=== PATIENT | female | born 1960 | race American Indian/Alaskan Native ===

== ENCOUNTER 2018-03-24 18:41 | Emergency (ER) | payer OTHER, BC ==
[2018-03-24 18:51] VITALS: BP 156/83; PULSE 61; RESP 16; TEMP 97.3; O2SAT 99
--- NOTE | 2018-03-24 20:11 | C.PDOC ---
History Of Present Illness 58 y/o female presents to the ED for evaluation of left foot injury sustained today. Patient states a container ran over her left foot while at work. She now complains of left foot pain and swelling. Denies any numbness or tingling. Time Seen by Provider: 03/24/18 19:07 Chief Complaint (Nursing): Lower Extremity Problem/Injury History Per: Patient History/Exam Limitations: no limitations Onset/Duration Of Symptoms: Hrs Current Symptoms Are (Timing): Still Present Past Medical History Reviewed: Historical Data, Nursing Documentation, Vital Signs Vital Signs: Last Vital Signs Temp 97.3 F L 03/24/18 18:46 Pulse 61 03/24/18 18:46 Resp 16 03/24/18 18:46 BP 156/83 H 03/24/18 18:46 Pulse Ox 99 03/24/18 18:46 - Medical History PMH: Gall Bladder Disease Denies: Chronic Kidney Disease Surgical History: Cholecystectomy Family History: States: No Known Family Hx - Social History Hx Alcohol Use: No Hx Substance Use: No Review Of Systems Musculoskeletal: Positive for: Foot Pain, Other (Foot Swelling) Skin: Negative for: Lesions, Bruising Neurological: Negative for: Weakness, Numbness, Incoordination Physical Exam - Physical Exam Appears: Non-toxic, No Acute Distress Skin: Warm, Dry, No Ecchymosis Head: Atraumatic, Normacephalic Eye(s): bilateral: Normal Inspection Respiratory: No Accessory Muscle Use, Other (speaking in full sentences) Extremity: Tenderness (diffusely to the left foot, no ankle tenderness), No Deformity, Swelling (throughout the left foot), Other (Able to bear limited weight on the left foot) Pulses: Left Dorsalis Pedis: Normal, Right Dorsalis Pedis: Normal Neurological/Psych: Oriented x3, Normal Motor, Normal Sensation ED Course And Treatment O2 Sat by Pulse Oximetry: 99 (RA) Pulse Ox Interpretation: Normal - Other Rad X-Ray Left Foot X-Ray: Interpreted by Me, Viewed By Me Interpretation: (+) non-displaced, non-comminuted fracture to the mid 5th metatarsal Medical Decision Making Medical Decision Making: Impression: Left foot trauma Initial Plan: --Left foot x-ray --Declined pain medication Imaging results discussed with patient. Surgical shoe and crutches provided. Advised to follow up with orthopedist, patient states she follows with Dr. Kike perez and has an appointment with him on Friday. Disposition Counseled Patient/Family Regarding: Studies Performed, Diagnosis, Need For Followup - Disposition Referrals: Ashley Armstrong MD [Staff Provider] - Disposition: HOME/ ROUTINE Disposition Time: 21:16 Condition: STABLE Additional Instructions: ALEXEI KAUR, thank you for letting us take care of you today. Your provider was Felicita Santos MD and you were treated for ANKLE INJURY. The emergency medical care you received today was directed at your acute symptoms. If you were prescribed any medication, please fill it and take as directed. It m ay take several days for your symptoms to resolve. Return to the Emergency Department if your symptoms worsen, do not improve, or if you have any other problems. Please contact your doctor or call one of the physicians/clinics you have been referred to that are listed on the Patient Visit Information form that is included in your discharge packet. Bring any paperwork you were given at discharge with you along with any medications you are taking to your follow up visit. Our treatment cannot replace ongoing medical care by a primary care provider outside of the emergency department. Thank you for allowing the [facility] team to be part of your care today. If you had an X-Ray or CT scan: A Radiologist will review the ED reading if any change in treatment is needed we will contact you. If you had a blood, urine, or wound culture: It will take several days for the results, if any change in treatment is needed we will contact you. If you had an STI test: It will take 48 hours for the results. Please call after 1 week if you have not heard back. Instructions: Foot Fracture (DC) Forms: [employer]* ([place]) - POA Present On Arrival: Falls Or Trauma - Clinical Impression Clinical Impression: Closed nondisplaced fracture of fifth left metatarsal bone - Scribe Statement The provider has reviewed the documentation as recorded by the Senia Contreras Provider Attestation: All medical record entries made by the Wyattibwiley were at my direction and personally dictated by me. I have reviewed the chart and agree that the record accurately reflects my personal performance of the history, physical exam, medical decision making, and the department course for this patient. I have also personally directed, reviewed, and agree with the discharge instructions and disposition.
--- NOTE | 2018-03-25 12:31 | RAD ---
PROCEDURE: Left Foot Radiographs. HISTORY: r/o fx COMPARISON: None available. FINDINGS: BONES: Oblique fracture of the 5th metatarsal. Remainder the visualized osseous structures appear intact. JOINTS: No dislocation. SOFT TISSUES: Soft tissue swelling. No evidence of radiopaque foreign body. OTHER FINDINGS: None. IMPRESSION: Acute oblique fracture of the mid 5th metatarsal with associated soft tissue swelling. Study has been marked for PA review.
== END 2018-03-24 21:28 | disposition home or self-care (01) ==
LOC: C.ER 18:41
DX: S92.355A Nondisplaced fracture of fifth metatarsal bone, left foot, initial encounter for closed fracture (principal); W22.8XXA Striking against or struck by other objects, initial encounter; Y99.0 Civilian activity done for income or pay

== ENCOUNTER 2018-05-22 09:25 | Day surgery (SDC) | payer BC, OTHER ==
[2018-05-22] MEDS ORDERED: EPINEPHrine 1:1000 Nasal Sol(30mL) ONE (13:28)
[2018-05-22] MEDS ORDERED: ceFAZolin 1 gm in NS 2 GM/200 ML BAG IVPB ONE (13:54)
[2018-05-22] MEDS ORDERED: Propofol 10 mg/ml Inj (20 ML) ONE (14:01)
[2018-05-22] MEDS ORDERED: Midazolam 2 MG/2 ML VIAL ONE (14:01)
[2018-05-22] MEDS ORDERED: Succinylcholine Chloride 20 mg/ml Syr (5 ml) IV ONE (14:08)
[2018-05-22] MEDS ORDERED: Rocuronium 10 mg/ml (5 ml) ONE (14:39)
[2018-05-22] MEDS ORDERED: Neostigmine 1:1000 (1 mg/ml) Inj ONE (16:41)
[2018-05-22] MEDS: HYDROmorphone 0.5 mg/0.5 ml ISec IVP PRN ×2 (17:12→18:46)
[2018-05-22] MEDS ORDERED: Lactated Ringer's 1,000 ML IV SCH (17:15)
[2018-05-22] MEDS ORDERED: Bupivacaine HCl 0.5% PF (10 ml) Inj ONE (17:21)
--- NOTE | 2018-05-22 17:51 | PCM.ANESB7 ---
Adductor Canal Block - Adductor Canal Block Date of Procedure: 05/22/18 Anesthiologist: Marii Pre-Procedure Diagnosis: left s/p meniscus repair Post-Procedure Diagnosis: same Procedure Performed: Adductor Canal Block Left - Procedure Adductor Canal Block: The procedure was explained to the patient that it is for the post-operative pain management. Consent was obtained after a thorough discussion with the patient regarding the benefits and possible complications of local anesthetic adductor canal block of the femoral nerve. Standard monitors, as defined by the ASA, were applied to the patient. Time-out was held with the circulating nurse to confirm the appropriate block. After applying supplemental oxygen and administering IV Sedation as needed, the patient was placed in supine position with and the operative leg was flexed slightly at the knee and externally rotated as needed, and was kept anatomically stable. The mid-thigh of the left lower extremity was exposed. The ultrasound transducer was then applied transversely along the medial aspect, about midway down the thigh and the femoral artery and vein were identified in appropriate relation with the sartorius muscle. At this time, the femoral nerve was visualized lateral to the femoral artery within the canal. After thorough identification, this area area was prepped with Chloroprep solution three times and 1 % Lidocaine was injected subcutaneously for topical anesthesia. At this point, a #22 gauge Stimuplex 4-inch needle was inserted in-plane in a [id number] orientation, and advanced toward the femoral nerve. Advancement was performed carefully under direct ultrasound visualization. Nerve stimulator was used and appropriate muscle twitch was obtained at current of MA. After negative aspiration, __5___cc of _0.5____% bupivacaine was injected and this was followed with ____15__ cc of ____0.5___ % ___bupivacaine . Under ultrasound guidance the local anesthetics were observed spreading around the femoral nerve. The needle was removed intact and sterile dressing was applied. The patient had stable vital signs, was conscious and in no apparent distress. The patient tolerated the femoral nerve block well with stable vital signs and was prepared for subsequent surgery
[2018-05-22] MEDS ORDERED: Lactated Ringer's 500 ML IV ONE (18:00)
[2018-05-22 18:30] VITALS: TEMP 97.9
[2018-05-22 19:47] VITALS: BP 126/67; PULSE 66; RESP 14; O2SAT 95
--- NOTE | 2018-05-23 04:33 | PCM.SURG1 ---
Surgeon's Initial Post Op Note - Surgeon's Notes Surgeon: Ashley Huertas MD Lead Radiation Therapist: Sole Mora PA-C Type of Anesthesia: General Endo, Block [facility] Pre-Operative Diagnosis: Left knee: #1 medial meniscal tear. #2 lateral meniscal tear. #3 partial ACL tear (unstable). #4 large poplitear/Dixon's cyst. #5 chondral injury/ chondromalacia. #6 synovitis Operative Findings: Left knee: #1 medial meniscal tear (complex tear from mid- body to posterior horn, white-red zone, not repairable). #2 lateral meniscal tear (2 zones of injury= white-white zone complex free edge tear, not repairable/ red-red zone peripheral tear at posterior horn, repairable). #3 partial ACL tear (complete tear karo-medial bundle, grade 3 rotational instability, grade 2 anterior draw/Declan, repairable). #4 large poplitear/B sheyla's cyst. #5 chondral injury/ chondromalacia = focal areas of full thickness grade 4 chondral loss at MFC (Traumatic/acute, measuring 3mm width, 15mm AP, at posterior WB zone), lateral plateau (Traumatic/acute, measuring 4mm width, 10mm AP), trochlea (degenerative, measuring [id number], central), patella (degenerative, entire medial facet). #6 synovitis all 3 compartments. #7 hypertrophic, inflamed fat pad (causing anterior impingement). #8 symptomatic medial and lateral plica bands Post-Operative Diagnosis: Left knee: #1 medial meniscal tear (complex tear from mid-body to posterior horn, white-red zone, not repairable). #2 lateral meniscal tear (2 zones of injury= white-white zone complex free edge tear, not repairable/ red-red zone peripheral tear at posterior horn, repairable). #3 partial ACL tear (complete tear karo-medial bundle, grade 3 rotational instability, grade 2 anterior draw/Declan, repairable). #4 large poplitear/Dixon's cyst. #5 chondral injury/ chondromalacia = focal areas of full thickness grade 4 chondral loss at MFC (Traumatic/acute, measuring 3mm width, 15mm AP, at posterior WB zone), lateral plateau (Traumatic/acute, measu ring 4mm width, 10mm AP), trochlea (degenerative, measuring [id number], central), patella (degenerative, entire medial facet). #6 synovitis all 3 compartments. #7 hypertrophic, inflamed fat pad (causing anterior impingement). #8 symptomatic medial and lateral plica bands Operation Performed: Left knee arthroscopic: #1 primary ACL repair. #2 all inside lateral meniscal repair. #3 partial medial menisectomy. #4 extensive synovectomy (synovectomy all 3 compartments, resection plica, debridement fat pad). #5 chondroplasty and microfracture chondral defects MFC, lateral plateau, trochlea. #6 intra-articular PRP injection. #7 ultrasound guided aspiration Dixon's cyst Specimen/Specimens Removed: specimen= none. complications=none. tourniquet time= 0min. Implants= Arthrex fiberwire suture and 5.5 biocomposite swivel Lock anchor x1 for ACL repair. Linvatex: Sequent meniscal repair system, 4 implants for LMR (1 kit opened) Estimated Blood Loss: EBL {In ML}: 3 Blood Products Given: N/A Drains Used: No Drains Post-Op Condition: Good Date of Surgery/Procedure: 05/22/18 Time of Surgery/Procedure: 16:00
--- NOTE | 2018-06-10 14:22 | OP ---
PROCEDURE DATE: 05/22/2018 PREOPERATIVE DIAGNOSES: Left knee: 1. Medial meniscal tear. 2. Lateral meniscal tear. 3. Partial anterior cruciate ligament tear (grade 2 instability). 4. Large popliteal Dixon cyst. 5. Chondral injury/chondromalacia. 6. Synovitis. 7. hypertrophic, inflamed, anterior infrapatellar fat pad POSTOPERATIVE DIAGNOSES: Left knee: 1. Medial meniscal tear (complex tear from midbody to posterior horn, white-red zone, not repairable). 2. Lateral meniscal tear (2 zones of injury = white-white zone complex free edge tear, not repairable/red-red zone preferable tear at posterior horn, repairable). 3. Partial anterior cruciate ligament tear (complete tear anterior medial bundle, grade 3 rotational instability, grade 2 anterior drawer/Declan, repairable with good quality, anterior cruciate ligament tissue present). 4. Large popliteal cyst/Dixon cyst. 5. Chondral injury/chondromalacia = focal areas of full-thickness grade 4 chondral loss at medial femoral condyle (traumatic/acute measuring 3 mm in width x 15 mm anterior to posterior at the posterior aspect of the medial femoral condyle), lateral plateau (traumatic/acute), measuring 4 mm of width x 10 mm anterior to posterior, trochlea (degenerative, measuring 15 mm x 15 mm central), patella (degenerative, medial facet). 6. Synovitis, all 3 compartments. 7. Hypertrophic, inflamed fat pad causing anterior impingement and patellofemoral impingement. 8. Symptomatic medial and lateral plica bands. PROCEDURES: Left knee arthroscopic. 1. Primary anterior cruciate ligament repair (AM bundle). 2. All-inside lateral meniscus repair. 3. Partial medial meniscectomy. 4. Extensive synovectomy, all three compartments. 5. Debridement and resection, symptomatic medial and lateral plica bands. 6. Debridement and resection, hypertrophic/inflamed fat pad. 7. Chondroplasty and microfracture chondral defects, medial femoral condyle, lateral plateau, trochlea. 8. Intraarticular platelet-rich plasma injection. 9. Ultrasound-guided aspiration, Dixon cyst. SURGEON: Ashley Huertas MD RECOVERER: Sole Mora PA-C JUSTIFICATION FOR RECOVERER: Sole Mora is a certified physician promotions assistant sales marketing whose skilled surgical services were an absolute necessity for successful completion of the procedure as he provided skilled surgical assistance with positioning of the patient, positioning of extremity, management of surgical box, retraction of neurovascular structures, facilitating all inside lateral meniscus repair, facilitating primary ACL repair with passage of suture through ACL and suture management as well as primary ACL repair fixation/placement of anchor and suture tensioning, handling of arthroscopic equipment, facilitating chondroplasty and microfracture of multiple acute chondral defects, extensive synovectomy, including resection of plica and debridement of fat pad, wound closure, fitting and placement of postop hinged knee brace. Sole Mora was present for the entire case and his presence was an absolute necessity for successful completion of this complex procedure requiring a skilled surgical coder. ANESTHESIA: General endotracheal anesthesia with a postop regional nerve block placed by anesthesia staff in PACU. SPECIMENS: None. COMPLICATIONS: None. TOURNIQUET TIME: Zero minutes. ESTIMATED BLOOD LOSS: 3 mL. DRAINS: None. DISPOSITION: The patient was extubated and transferred to the PACU in stable condition and tolerated the procedure well. IMPLANTS: 1. [employer] FiberWire suture and 5.5 mm BioComposite SwiveLock knotless anchor x1 for ACL repair AM bundle. 2. [employer] all-inside meniscal repair system, 4 implants used for lateral meniscus repair (1 kit opened). INDICATIONS FOR SURGERY: The patient is a 58-year-old female with no significant past medical history who presented to the office for the first time under my care with left knee pain, swelling, instability since 10/2017 with her initial presentation in my office on 01/12/2018. Despite the specific timeline of progressively worsening pain and instability around 10/2017, she could not recall a specific traumatic event, but states that she has had multiple twisting mechanism type injuries to the left knee around 10/2017 that resulted in her progressively worsening left knee pain. She saw her primary care physician who referred her for an orthopedic evaluation. She works as a truck dock material mover at [employer] and at this point in time, the pain has become a significant negative impact on her quality of life and is interfering with her ability to perform her work function and responsibilities. Left knee pain consistently rated 8/10 and localized to the medial and lateral joint line as well as the posterior knee. She admitted to clicking and catching and multiple episodes of locking and giving away and nearly falling to the ground. Subjectively, she reported significant instability. She also reported pain at the anterior aspect of the knee localized to the infrapatellar fat pad with forced full extension. this most likely represents Hypertrophic, inflamed anterior fat pad causing anterior impingement at knee joint on extension as well as patellofemoral impingement with extension. X-rays taken in the office on initial presentation on 01/12/2018 showed joint spaces that were well maintained with normal alignment and no obvious evidence of DJD and no fracture or dislocation. She underwent MRI of the left knee done at [facility] on 01/23/2018, which was read as: 1. Complex tear, posterior horn and body of medial meniscus. 2. Grade 2 sprain/partial tear ACL and MCL. 3. Moderate tricompartmental articular chondrosis, most pronounced medially. 4. Large Dixon cyst. On my review of the MRI, there was definite signal change in the medial meniscus with significant complex meniscal tear, ACL showed significant signal change, with complete tear of the anterior medial bundle detached from the femoral insertion at the lateral femoral condyle. On the MRI, there appeared to be good quality ACL tissue that potentially is amenable to primary repair if indicated. Chondral surface throughout the knee was mostly intact with a focal zone of full-thickness cartilage loss at the medial femoral condyle measuring 10 mm x 10 mm. There was also a large 7 cm Dixon cyst at the posterior knee embedded within the medial gastroc head. After initial presentation on 01/12/2018, we started conservative treatment for her left knee pain, which included placement of an [id number] ACL brace, intraarticular cortisone mixture injection, referral to physical therapy, home exercise program, antiinflammatory medications in the form of Mobic, antiinflammatory compound cream. She was very compliant with all conservative treatments recommendations, despite even if it was causing her more pain, she still did not miss any physical therapy visits. She underwent a cortisone mixture intraarticular injection under my care in the office on 01/12/2018 and 04/23/2018. On both occasions, with the intraarticular injections, she reported near complete resolution of pain and religious of painless range of motion and function. With the use of the [id number] ACL brace, which she was compliant with, she stated that she felt that her knee was stable, but once she tried to perform any activity without the brace on, she felt like her knee was giving out and reported significant subjective instability. After approximately 4 months of conservative treatment and at that point 8 months since onset of symptoms with presumed trauma in 10/2017, she had no overall improvement and was very frustrated with her life of progress. She was concerned as she was having difficulty maintaining her work function and activity level. She was also distraught that she was not able to return to her recreational activities and walking and running as well as gym activities and classes. We discussed further treatment options including more injections and physical therapy versus surgical intervention, she was indicated for surgery in the form of left knee arthroscopic medial and lateral meniscal repairs versus partial meniscectomy, possible primary ACL repair, chondroplasty/microfracture/joint preservation treatment for cartilage injury, synovectomy, or related indicated arthroscopic procedures. The risks, benefits and alternatives to the procedure were discussed at length with the patient with the risks including but not limited to infection, neurovascular damage, need for further surgery, failure of repair, failure of the implants, inability to return to preinjury level of activity and occupation, development of blood clots including DVT ad PE, development of chronic pain and disability, anesthesia reactions including . After answering all of her questions, she stated that she understood the risks and wished to proceed with surgery. She watched surgical animation videos and diagnosis animation videos and stated that she had a good understanding of the procedure as well as her multiple diagnoses. She was referred to her primary care physician for preoperative medial evaluation and the procedure was scheduled at [facility] on 05/22/2018. PROCEDURE IN DETAIL: The patient was identified in the preoperative holding area, and the left knee was marked for surgery. Once again as described above, the risks, benefits, and alternatives of the procedure were discussed at length with the patient and informed consent was obtained. After a brief discussion with anesthesia staff, the patient was taken to the operating room and placed on a well-padded operating room table with all bony prominences and superficial neurovascular structures well padded. Initial time-out was done with the surgeon, anesthesia staff, operating room staff all in agreement with the patient, procedure being done and extremity being operated on. General anesthesia was administered without difficulty or complications. Examination under anesthesia was then carried out. EXAMINATION UNDER ANESTHESIA: Left knee with no swelling, no warmth, no erythema. Skin intact. large posterior Dixon cyst palpated deep to medial gastroc. Full range of motion compared to contralateral knee, significant ACL instability with 3+ anterior cone baker machine external rotation, neutral, internal rotation with soft endpoint, 2+ Declan with firm endpoints, 2+ pivot shift, negative posterior drawer, negative reverse Declan, negative reverse pivot shift, negative opening to medial or lateral joint line at 0 or 30 degrees varus or valgus stress. Patella with normal tracking with no evidence of instability, no crepitance. There was reproducible palpable click at the inferior medial aspect of the patella engaging the patella at 30 degrees of flexion throughout flexion arc representing a symptomatic medial plica band. Negative posterolateral corner drawer, negative dial test, negative recurvatum. Overall, there was significant rotational instability of this partial ACL tear. CONTINUATION OF PROCEDURE: The tourniquet was placed high on the right thigh, but never inflated. left lower extremity was prepped and draped in a standard sterile fashion. A final time-out was done with the surgeon, anesthesia staff, OR staff, all in agreement with the patient, procedure being done, and extremity being operated on. Perioperative IV antibiotics were administered. A 50 mL of normal saline was used to insufflate the knee joint. Anterolateral portal was created with stab incision through the skin down to subcutaneous tissue down to the level of the capsule. Blunt arthroscopic trocar and cannula were inserted into the suprapatellar pouch, and insufflation with arthroscopic fluid was begun. Arthroscopic camera was inserted, and with the use of spinal needle localization, anterior medial portal location was identified and created with stab incision to skin down to subcutaneous tissue down to the level of capsule. An accessory cannula was inserted through the anteromedial portal, and the knee joint was copiously irrigated for removal of synovial debris and better visualization. With the use of an arthroscopic probe, a diagnostic arthroscopy was then carried out. DIAGNOSTIC ARTHROSCOPY: Attention was first turned towards the suprapatellar pouch where there was no evidence of adhesions or loose body, patellar-femoral joint exhibited significant chondral injury. Trochlea exhibited degenerative central area of full-thickness chondral loss down to subchondral bone measuring 15 mm x 15 mm, patella exhibited full thickness chondral loss, degenerative nature encompassing the entire medial facet. The remainder of the chondral surface of the trochlea and patella was intact. the patella was well centered within the trochlea with no evidence of instability or subluxation on dynamic testing. Attention was then turned towards the medial gutter where there was no evidence of loose bodies, but there was obvious thickened hypertrophic inflamed symptomatic medial plica band causing friction with the medial femoral condyle chondral surface extending from the inferior medial aspect of the patella to the medial retinaculum. Attention was then turned towards the medial compartment where intact medial tibial plateau cartilage/chondral surface was seen. Medial femoral condyle had global grade 1 chondromalacia with a focal area of grade 4 chondromalacia /chondral loss Focal in nature measuring 3 mm in width and 15 mm anterior to posterior located at the posterior aspect of the weightbearing zone medial femoral condyle. The medial meniscus upon careful evaluation exhibited a large area of complex injury. There was a complex tear localized to the white-red zone starting at the mid body extending to the entire posterior horn medial meniscus with poor quality meniscal tissue not amenable to repair. Attention was then turned towards the intercondylar notch, and the PCL was evaluated and found to be intact. ACL was carefully evaluated in detail, and there were significant tears in line with the fibers with ACL, buckling seen and attenuation. After careful evaluation and tracing of both bundles proximally individually, to the lateral femoral condyle insertions, it was obvious that this was a complete avulsion anterior-medial bundle while the posterior- lateral bundle showed only partial tear proximally at the lateral femoral condyle apache insertion/footprint. the majority of the posterior-lateral bundle proximal insertion at the lateral femoral condyle was intact. The anterior medial bundle avulsion fibers/apache remnant fibers were of good quality ACL tissue, Scarred down to the posterior capsule and PCL. The posterior lateral bundle fibers also appeared to be of good quality and appeared to be maintaining its stabilizing function with overall intact and tight fibers throughout. This explains the grade 3 instability in the anterior translation plane while grade 1-2 instability with a firm endpoint on Declan and pivot shift testing. Attention was then turned towards the lateral compartment, careful evaluation with the arthroscopic probe at the lateral meniscus yielded 3 zones of injury: #1 complex free edge white-white zone tearing extending from the posterior horn to the mid body, by definition not amenable to repair. #2 posterior horn exhibited significant peripheral red-red zone tear beginning anterior to the popliteal hiatus extending anterior to the posterior horn-mid body junction with good-quality meniscal tissue amenable to repair present. This tear pattern resulted in significant hypermobility /instability of the posterior horn of the lateral meniscus with ability to sublux the posterior horn anteriorly beyond the midpoint of the lateral femoral condyle almost touching the anterior horn lateral meniscus. #3 posterior horn also had a secondary tear in the form of a large undersurface flap tear beginning at the midpoint of the posterior horn and continuing posterior to the junction of the posterior horn-posterior root, not repairable. The posterior root was intact and stable. The lateral femoral condyle exhibited intact cartilage with no visible degenerative or traumatic chondral injury. Lateral tibial plateau chondral surface exhibited acute/traumatic zone of full-thickness chondral injury measuring 4 mm in width by 10 mm anterior to posterior with exposed subchondral bone. Aside from the zones of full-thickness chondral injury localized to the medial femoral condyle, lateral tibial plate medial facet patella, the rest of the chondral surface of the knee was intact with no evidence of degenerative or chondral injury. There was also a hypertrophic, thickened symptomatic lateral plica band causing friction with lateral femoral condyle lateral aspect. Throughout all three compartments of the knee, there was significant hypertrophic inflamed synovitis. At the anterior aspect of the knee, there was hypertrophic and inflamed anterior fat pad causing significant anterior and patellofemoral impingement. CONTINUATION OF PROCEDURE: ARTHROSCOPIC ALL INSIDE LATERAL MENISCAL REPAIR: With the use of arthroscopic shaver, radiofrequency ablation, arthroscopic meniscal biters, a partial lateral meniscectomy was carried out debriding complex tears that were not repairable at the white-white zone, free edge of the mid body extending to the posterior horn as well as the secondary tear at the posterior horn in the form of an undersurface complex large flap tear not amenable to repair despite being partially localized to the white-red and red-red zones. Once this was carried out to satisfaction and a smooth contour was established as well as complete resection of the undersurface flap tear, we then turned our attention to the meniscus repair. All in all approximately 15% of the lateral meniscus was resected during the partial lateral meniscectomy. We first turned our attention to the posterior horn peripheral red-red zone tear/meniscocapsular separation localized anterior to the popliteal hiatus resulting in significant hypermobility of the posterior horn. There was good quality meniscal tissue at that was amenable to all inside lateral meniscus repair. The [employer] meniscal repair system was used with placement of 4 implants in total. 4 implants were placed at the superior aspect of the posterior horn anterior to the popliteal hiatus with good capsular sided fixation achieved resulting in 3 vertical mattress sutures stabilizing and repairing the peripheral red-red zone tear of the posterior horn. The arthroscopic probe was used to evaluate the repair and indeed good stability and repair was achieved of this peripheral red-red zone injury/meniscal capsular separation, successful all inside lateral meniscus repair posterior horn was achieved. the posterior horn peripheral tear successful arthroscopic repair resulted in significant improvement in the instability/hypermobility of the posterior horn lateral meniscus. After the repair was completed, we were unable to sublux the posterior horn anteriorly beyond the level of the midpoint of the lateral femoral condyle as well as possible and displayed prior to the posterior horn peripheral tear repair. ARTHROSCOPIC PARTIAL MEDIAL MENISECTOMY: With the use of arthroscopic shaver, radiofrequency ablation, arthroscopic meniscal biters, a partial medial meniscectomy was carried out. The nature of the medial meniscal complex tearing presented with poor quality meniscal tissue localized to the white-white and white-red zone mid body to posterior horn. There was a complex free edge tear localized to the white-white zone beginning at the mid body and extending posterior to the posterior horn. There was also a large complex flap tear localized to the white-red zone beginning at the midpoint of the posterior horn extending to the posterior horn-posterior root junction. The partial medial meniscectomy involved resection of both zones of injury described above. Once a smooth contour to the free edge tear was established removing the unstable meniscal fragments and complex tearing and large flap tear was resected establishing a smooth contour to the posterior horn, posterior horn-posterior junction as well as the posterior root itself were carefully evaluated. The posterior root was stable with 90% intact fibers. All in all once the partial medial meniscectomy was completed, approximately 20-25% of the medial meniscus was resected overall. We used a very conservative approach performing the partial medial meniscectomy leaving behind as much intact medial meniscal tissue as possible adherent to the principles of joint preservation. ARTHROSCOPIC PRIMARY ACL REPAIR (AM BUNDLE ONLY): With the use of arthroscopic shaver and radiofrequency ablation, the poor quality torn, degenerative anterior-medial and posterior-lateral bundle fibers were resected and debrided in a very conservative manner leaving as much apache ACL fibers as possible to incorporate into the primary ACL repair. Overlying ligamentum and synovium over the lateral femoral condyle and insertion of the anterior medial and posterior lateral bundles at the lateral femoral condyle was debrided and marked. The anteromedial and posterolateral bundle fibers were identified and visually. The posterior wall of the lateral femoral condyle was also visualized and noted to avoid posterior breakout, the posterior border of our working area for placement of ACL repair anchor was established. Only the anterior medial bundle of the ACL partial tear was indicated for primary repair. With the use of the meniscal scorpion suture passer from [employer], we began with passage of suture through the anterior medial bundle. A #2 FiberWire suture was passed starting at the distal aspect of the anterior medial bundle at the tibial insertion and working our way proximally to the femoral side of the anterior medial bundle. Approximately 4 to 5 passes with the #2 FiberWire sutures zigzagging through the anterior medial bundle work carried out. To reinforce the construct 1 #2 FiberWire cinch suture was also passed mid substance with a good bite of the anterior medial bundle. An accessory incision was made superior just inferior to the inferior pole of the patella as a small 1 cm stab incision to pass the sutures from the posterior lateral bundle and maintain good suture management. The anterior medial portal had been expanded and a PassPort cannula had been placed to also facilitate good suture management and avoid soft tissue bridge. Optimal insertion points at the lateral femoral condyle with at the apache femoral insertion footprint for anterior medial bundle was identified. A 5.5 BioComposite SwiveLock knotless anchor from [employer] was selected for the anterior medial single bundle ACL primary repair. With the use of the punch, the police pilot hole at the insertion site at the apache anterior medial bundle insertion at the lateral femoral condyle was prepared, and the FiberWire suture from the anterior medial bundle repair were passed through the SwiveLock anchor and the anchor was carefully and successfully placed with good bony fixation achieved at the lateral femoral condyle, reducing and repairing the anterior medial bundle back to its apache anatomical femoral proximal insertion point with no gap/anterior medial ACL fibers brought directly to contact and compression at the lateral femoral condyle wall. With the use arthroscopic probe, the tension of the ACL was evaluated and indeed good tension was achieved with no residual attenuation or ACL buckling present. Anterior medial bundle was brought directly up to its apache proximal femoral insertion footprint with no gap present and good tension achieved. Clinically, ACL stability had been restored with the primary ACL repair with resulting negative anterior drawer, negative Declan, negative pivot shift. the posterior lateral bundle exhibited good stability and tightness of ACL fibers. There is no indication to perform repair on the posterior lateral bundle. This was confirmed with a stable exam resulting after just single bundle repair/anterior medial bundle primary repair. ARTHROSCOPIC EXTENSIVE SYNOVECTOMY: With the use of arthroscopic shaver and radiofrequency ablation, an extensive synovectomy was carried out beyond what is considered usual and customary for better visualization during arthroscopic surgery. A significant amount of surgical time was dedicated to this portion of the procedure, as the extensive synovectomy was utilized to resect and debride and perform a synovectomy in all three compartments of the knee while maintaining good hemostasis. The medial and lateral symptomatic plica bands were also resected and debrided successfully. The hypertrophic and inflamed anterior fat pad causing anterior impingement and patellar femoral impingement was resected and debrided, all while maintaining good hemostasis. Again, this extensive synovectomy was carried out beyond what is normally utilized for better visualization during basic arthroscopic surgery and a significant amount of surgical time was dedicated to performing the successful extensive synovectomy and completing the treatment tasks of resecting the symptomatic hypertrophic medial and lateral plica bands, synovectomy of all three compartments, debridement of the hypertrophic fat pad that was causing anterior and patellofemoral impingement. ARTHROSCOPIC CHONDROPLASTY AND MICROFRACTURE LATERAL TIBIAL PLATEAU, MEDIAL FEMORAL CONDYLE, TROCHLEA, AND MEDIAL FACET PATELLA FULL THICKNESS FOCAL CHONDRAL DEFECTS: As described above, during diagnostic arthroscopy, it was identified that for the most part the cartilage of all 3 compartments of the knee was intact with minimal significant wear aside from Discrete traumatic focal areas of full- thickness chondral defect localized to the medial femoral condyle, lateral tibial plateau, trochlea, and medial facet of the patella. Details of each focal area of full-thickness chondral injury: #1 medial femoral condyle = traumatic/acute focal zone of full-thickness chondral injury measuring 3 mm in width by 15 mm anterior to posterior localized to the posterior aspect of the weightbearing zone of the medial femoral condyle. #2 lateral tibial plateau chondral surface = traumatic/acute focal area of full-thickness chondral injury measuring 4 mm in width by 10 mm anterior to posterior localized at the posterior aspect of the, lateral aspect of lateral tibial plateau chondral surface. #3 medial facet patella = focal full-thickness chondral injury grade 4 localized to the medial facet patella encompassing the entire medial facet. #4 trochlea = large central area of full-thickness chondral injury, central aspect of the trochlea measuring 15 mm x 15 mm, although focal/traumatic in nature, there was also a degenerative component surrounding trochlear cartilage. Treatment for all 4 zones of focal full-thickness chondral injury: With the use of arthroscopic shaver and radiofrequency ablation, chondroplasty was carried out establishing a smooth rim of cartilage at the focal zones of injury of full thickness cartilage loss down to subchondral bone at all 4 zones of injury full-thickness chondral loss described above. Once the smooth stable rim of intact surrounding cartilage was established, the microfracture awl was used to place multiple microfracture holes with good spacing at all 4 zones of chondral injury. Good blood and fat return was established at the microfracture holes confirming good microfracture technique. Final arthroscopic imaging/pictures were taken of the ACL repair, lateral meniscus repair, partial medial meniscectomy, all 4 regions of full-thickness chondral injury-chondroplasty and microfracture, extensive synovectomy. We then evacuated the arthroscopic fluid and arthroscopic debris. ARTHROSCOPIC INTRA-ARTICULAR PRP INJECTION: With the help of anesthesia staff, a peripheral venous stick was carried out. Venous blood was spun in the centrifuge from [place] yielding 10 cc of concentrated PRP. Under direct arthroscopic visualization, the 10 cc of PRP was injected intra- articular in its entirety. All 3 arthroscopic portals were then reapproximated with 2. 0 Vicryl suture for deep tissue followed by 3. 0 Monocryl suture for skin. ULTRASOUND-GUIDED ASPIRATION LARGE DIXON'S CYST: The posterior knee was prepped in standard sterile fashion, with the use of ultrasound, large spinal needle was guided down to the level of the visualized Large posterior Dixon's cyst, deep to the medial gastroc head. With the successful arthroscopic surgery/treatment of intra-articular injury, The Dixon's cyst was filled with arthroscopic fluid and not expected gelatinous Cyst material that usually encountered. Approximately 50 cc of arthroscopic fluid was aspirated from the posterior Dixon's cyst under ultrasound guidance. Post aspiration ultrasound imaging showed that the cyst had decompressed and was almost nonvisible. Sterile dressings were applied, followed by a layer of sterile cast padding from the toes up to the superior thigh, following by layer of compressive RHEA wrap from the toes up to the superior thigh. A postop hinged knee brace provided by my office was then fitted and placed on the patient's left lower extremity. The brace was placed out of absolute medical necessity to protect and facilitate successful healing of the ACL repair, meniscus repairs, microfracture and chondroplasty, synovectomy. With the postop hinged knee brace locked at 0 degrees extension, the patient would be able to be weightbearing as tolerated as the microfracture areas were at the posterior aspect of the lateral tibial plateau and the posterior aspect of the lateral femoral condyle. With her left knee in full extension, the zones of microfracture treatment were not in line to experience direct force from weightbearing. She will also be able to unlock the brace and work on range of motion without endangering her ACL repair or meniscus repairs when she is not ambulating and weightbearing. Once the postop hinged knee brace was fitted and placed on the patient and locked at 0 degrees extension, she was then extubated and transferred to PACU in stable condition and tolerated the procedure well. JUSTIFICATION FOR BILLING AND CODIN. Arthroscopic primary ACL repair was successful carried out and therefore was coded and billed with CPT code 93147. 2. All-inside lateral meniscal repair was carried out successfully and therefore was coded and billed with CPT code 69084. 3. Arthroscopic partial medial meniscectomy was carried out resecting 20-25% of the medial meniscus, and therefore, arthroscopic partial medial meniscectomy was coded and billed with CPT code 85359. 4. Chondroplasty and microfracture of lateral tibial plateau, medial femoral condyle, Medial facet patella, and trochlea was carried out successfully and therefore was coded and billed with CPT code 59303. 5. An extensive synovectomy was carried out beyond what is considered usual and customary for better visualization during arthroscopic surgery with a significant amount of surgical time dedicated to arthroscopic synovectomy of all three compartments with resection and debridement of symptomatic medial and lateral plica bands as well as resection and debridement of the symptomatic hypertrophic inflamed fat pad causing anterior and patella femoral impingement. Therefore, extensive synovectomy was coded and billed, CPT 49913. 6. Intraarticular platelet-rich plasma injection was placed at the end of the procedure under direct arthroscopic visualization, and therefore was coded and billed, CPT 0232T. 7. A postop hinged knee brace provided by my office was fitted and placed on the patient at the end of the procedure, placed out of absolute medical necessity to protect and maximize the chances of successful healing of multiple products of the surgery including the ACL repair, medial meniscus repair, lateral meniscus stabilization, microfractures and lateral retinacular release. Therefore, the postop hinged knee brace provided by my office and dispensed on the same date of service/date of surgery, fitted and placed on the right lower extremity/right knee of the patient was coded and billed as DME code of [id number]. 8. ultrasound-guided aspiration of large posterior Dixon's cyst was carried out successfully, and therefore was coded and billed, CPT 09693. DISPOSITION: The patient will be discharged home once she is recovered from anesthesia as same day outpatient surgery. She can be weightbearing as tolerated to the Left lower extremity with the postop hinged knee brace locked at 0 degrees extension at all times for the first 6 weeks postop. She was given a prescription for Percocet for pain control. She was given a prescription for Lovenox 40 mg subcutaneous injection as DVT prophylaxis starting postoperative day #1 and continuing for two weeks postoperatively. She will contact me directly with any questions or concerns. She is instructed to keep the dressings clean, dry, and intact as well as the brace on at all times. She will follow up in my office at [facility] within one week and already has her postoperative appointment setup. Ashley Huertas MD [facility]
== END 2018-05-22 20:20 | disposition home or self-care (01) ==
LOC: C.SDS 09:25
PROVIDERS: ATTEND Student in an Organized Health Care Education/Training Program
DX: S83.232D Complex tear of medial meniscus, current injury, left knee, subsequent encounter (principal); M67.862 Other specified disorders of synovium, left knee; M94.262 Chondromalacia, left knee; S83.519A Sprain of anterior cruciate ligament of unspecified knee, initial encounter; M65.9 Synovitis and tenosynovitis, unspecified
CPT/HCPCS: 29876; 29880; 29888; C1713; G0289; J0690; J1170; J2250; J2405; J2704; J2710; J3010; J7120